=== PATIENT | male | born 1955 | race African-American/Black ===

== ENCOUNTER 2016-12-29 16:37 | Emergency (ER) | payer MEDICAID ==
[~2016-12-29] VITALS: Ht 177.8 cm; Wt 93.4 kg
[~2016-12-29 16:37] MED LIST: ASPIR-LOW81 MG ORAL; BENAZEPRIL HCL20 MG ORAL; CLOTRIMAZOLE AF30 GM TOPIC; CYCLOBENZAPRINE10 MG ORAL; DICLOFENAC SODI50 MG PO; GABAPENTIN300 MG ORAL; IBUPROFEN600 MG ORAL; IBUPROFEN600 MG PO; IBUPROFEN800 MG ORAL; LANTUS SOL100 UNIT/1 SUBQ; LANTUS5 UNITS SUBQ; LOVASTATIN20 MG ORAL; METFORMIN HCL1000 M1 ORAL; NEURONTIN100 MG ORAL; NORCO 5-325 TA1 EACH ORAL; NORCO 5-325 TA1 EACH PO; PREDNISONE10 MG ORAL; SOMA350 MG PO; TRAMADOL HCL50 MG ORAL; UNK BP MED; VICODIN 5-5001 EACH PO; [UNRECOGNIZED DRUG - REMARK]; [UNRECOGNIZED DRUG - SUPPLY] MC
[2016-12-29] MEDS ORDERED: ROBAXIN-750750 MG PO (17:04)
[2016-12-29 17:10] VITALS: BP 153/96
--- NOTE | 2016-12-29 17:11 | Emergency Room Report ---
History of Present Illness General Chief Complaint: Multiple Trauma/Fall Source: Medical Record Present Illness HPI [id number] [employer] patient c/o left knee strain when walking down stairs. No acute direct trauma to knee. Able to ambulate No previous injury to left knee Contrary to head esthetician note, denies pain to upper extremities Allergies: Coded Allergies: No Known Allergies (Unverified , 08/01/12) Patient History Past Medical History: none Past Surgical History: none Pertinent Family History: none Social History: Denies: alcohol use, drug use, smoking Immunizations: UTD Reviewed Nursing Documentation: PMH: Agreed, PSxH: Agreed Nursing Documentation-PMH Past Medical History: No History, Except For Hx Cardiac Problems: No Hx Hypertension: Yes Hx Pacemaker: No Hx Asthma: No Hx COPD: No Hx Diabetes: Yes Hx Cancer: No Hx Dialysis: No Hx Neurological Problems: No Hx Cerebrovascular Accident: No Hx Seizures: No Review of Systems All Other Systems: negative except mentioned in HPI Physical Exam Vital Signs Date Time Temp Pulse Resp B/P Pulse Ox O2 Delivery O2 Flow Rate FiO2 12/29/16 16:43 98.1 87 16 153/96 98 Room Air Sp02 EP Interpretation: reviewed, normal General Appearance: normal inspection, well appearing, no apparent distress, alert, GCS 15, non-toxic Head: normocephalic, atraumatic Eyes: bilateral eye EOMI, bilateral eye PERRL ENT: normal ENT inspection, hearing grossly normal, normal voice Neck: normal inspection, full range of motion, supple, no bony tend Respiratory: normal inspection, lungs clear, normal breath sounds, no respiratory distress, no retraction, no wheezing Cardiovascular #1: regular rate, rhythm, no edema Gastrointestinal: normal inspection, normal bowel sounds, non tender, soft, no guarding, no hernia Genitourinary: no CVA tenderness Musculoskeletal: normal inspection, back normal, normal range of motion, Juanita' s Sign negative, other - Left knee: No swelling or deformity. ROM intact. No signs of infection,. Neurologic: normal inspection, alert, oriented x3, responsive, irrigator head III-XII nml as tested, DTRs symmetric, speech normal Psychiatric: normal inspection, judgement/insight normal, mood/affect normal Skin: normal inspection, normal color, no rash Medical Decision Making Diagnostic Impression: Primary Impression: Contusion, knee Qualified Codes: S80.02XA - Contusion of left knee, initial encounter ER Course Advised SUSAN TURNER followup Low suspicion for fx, septic joint, gout at this time DC home Last Vital Signs Date Time Temp Pulse Resp B/P Pulse Ox O2 Delivery O2 Flow Rate FiO2 12/29/16 16:43 98.1 87 16 153/96 98 Room Air Status: improved Disposition: HOME, SELF-CARE Condition: Improved Scripts Methocarbamol* (ROBAXIN-750*) 750 Mg Tablet 750 MG PO TID for 7 Days, #30 TAB 0 Refills Prov: ALBERTO DAVIS M.D. 12/29/16 Patient Instructions: Musculoskeletal Pain Additional Instructions: - Apply ice to area of pain as often as possible - Stretch knee daily - Keep LUIS ANGEL bandage on for support - Take robaxin up to 3x a day for pain ALBERTO DAVIS M.D. Dec 29, 2016 17:11
== END 2016-12-29 17:10 | disposition home or self-care (01) ==
LOC: EMR 16:55
DX: S80.02XA Contusion of left knee, initial encounter (principal); W01.0XXA Fall on same level from slipping, tripping and stumbling without subsequent striking against object, initial encounter; Y92.89 Other specified places as the place of occurrence of the external cause; I10 Essential (primary) hypertension; E11.9 Type 2 diabetes mellitus without complications
CPT/HCPCS: 29530; 99283

== ENCOUNTER 2019-05-14 10:59 | Emergency (ER) | payer MEDICAID ==
[~2019-05-14] VITALS: Ht 177.8 cm; Wt 93.0 kg
[~2019-05-14 10:59] MED LIST changes: +ROBAXIN-750750 MG PO
[2019-05-14 11:18] VITALS: BP 187/99
[2019-05-14] MEDS ORDERED: MULTIVITAMINS1 EAC2 ORAL (11:37)
[2019-05-14] MEDS ORDERED: basaglar INJ (11:37)
[2019-05-14] MEDS ORDERED: DICLOFENAC SODI25 MG ORAL (11:37)
[2019-05-14] MEDS ORDERED: FISH OIL CAP1000 MG ORAL (11:37)
--- NOTE | 2019-05-14 12:53 | Emergency Room Report ---
History of Present Illness General Chief Complaint: Pain Source: Medical Record Present Illness HPI 64-year-old male presents to the emergency department complaining of 10 out of 10 severity right-sided low back/hip pain with radiation down the posterior thigh towards his calf. Patient reports history of sciatica he states that his symptoms are similar in presentation to episodes that he is experienced in the past. Patient denies changes in characteristics. Patient denies fevers, chills , recent spinal procedures or history of cancer. Patient denies saddle anesthesia, loss of gross motor movements or inability to ambulate. Patient denies urinary incontinence or retention. Patient denies trauma or fall. Patient reports his last episode was approximately 2 years ago. He denies notable strenuous activities. Patient reports bending forward or sitting in a certain position will aggravate his symptoms. Patient reports he has some relief at rest. Patient is also reporting 6 out of 10 severity bilateral wrist pain and states he has a history of carpal tunnel bilaterally and is requesting new wrist splints as he lost the ones that he was using regularly. Patient denies trauma or fall he denies paresthesias to the fingers he denies loss of gross motor movements of the hands he denies swelling, erythema, warmth or open wound/bleeding. No other aggravating or relieving factors at this time. Allergies: Coded Allergies: No Known Allergies (Unverified , 08/01/12) Patient History Past Medical History: see triage record Past Surgical History: other - hardware in the left leg. Pertinent Family History: none Immunizations: UTD Reviewed Nursing Documentation: PMH: Agreed; PSxH: Agreed Nursing Documentation-PM Past Medical History: No History, Except For Hx Cardiac Problems: No Hx Hypertension: Yes Hx Pacemaker: No Hx Asthma: No Hx COPD: No Hx Diabetes: Yes Hx Cancer: No Hx Dialysis: No Hx Neurological Problems: No Hx Cerebrovascular Accident: No Hx Seizures: No Review of Systems All Other Systems: negative except mentioned in HPI Physical Exam Vital Signs Date Time Temp Pulse Resp B/P (MAP) Pulse Ox O2 Delivery O2 Flow Rate FiO2 05/14/19 11:06 97.9 99 18 187/99 (128) 96 Room Air Sp02 EP Interpretation: reviewed, normal General Appearance: no apparent distress, alert, GCS 15, non-toxic Head: normocephalic, atraumatic Eyes: bilateral eye normal inspection, bilateral eye PERRL ENT: hearing grossly normal, normal voice Neck: full range of motion Respiratory: chest non-tender, lungs clear, normal breath sounds, no respiratory distress, no wheezing, speaking full sentences Cardiovascular #1: regular rate, rhythm, no edema, normal capillary refill Cardiovascular #2: 2+ dorsalis pedis (R) - posterior tibialis, 2+ dorsalis pedis (L) - posterior tibialis Gastrointestinal: non tender, soft Rectal: deferred Genitourinary: normal inspection, no CVA tenderness Musculoskeletal: normal range of motion, no calf tenderness, other - mild ttp with ROM of the bilateral wrists, no swelling, no obvious deformity. some slight thenar muscle atrophy bilaterally. , tender - Right Paraspinal and upper gluteal TTP, FROM with exacerbation of pain temporarily in certain flexed positions, no LE weakness, pt. is NVI, no erythema, midline bony ttp, step-offs or obvious deformity. Neurologic: alert, oriented x3, responsive, motor strength/tone normal, sensory intact, speech normal, distal neuro normal, grossly normal Psychiatric: judgement/insight normal Lymphatic: no adenopathy Medical Decision Making PA Attestation Dr. Alexandra is my supervising Physician whom patient management has been discussed with. Diagnostic Impression: Primary Impression: Sciatica of right side Additional Impression: Pain of both wrist joints ER Course 64-year-old male presents to the emergency department complaining of 10 out of 10 severity right-sided low back/hip pain with radiation down the posterior thigh towards his calf. Patient reports history of sciatica he states that his symptoms are similar in presentation to episodes that he is experienced in the past. Patient denies changes in characteristics. Patient denies fevers, chills , recent spinal procedures or history of cancer. Patient denies saddle anesthesia, loss of gross motor movements or inability to ambulate. Patient denies urinary incontinence or retention. Patient denies trauma or fall. Patient reports his last episode was approximately 2 years ago. He denies notable strenuous activities. Patient reports bending forward or sitting in a certain position will aggravate his symptoms. Patient reports he has some relief at rest. Patient is also reporting 6 out of 10 severity bilateral wrist pain and states he has a history of carpal tunnel bilaterally and is requesting new wrist splints as he lost the ones that he was using regularly. Patient denies trauma or fall he denies paresthesias to the fingers he denies loss of gross motor movements of the hands he denies swelling, erythema, warmth or open wound/bleeding. No other aggravating or relieving factors at this time. Ddx considered but are not limited to Fracture, dislocation, contusion, epidural abscess, Sprain/Strain/Spasm Vital signs: are WNL, pt. is afebrile H&PE are most consistent with sciatica--no evidence of cauda equina syndrome, patient ambulatory without assistance at rest he is in no acute distress and nontoxic in appearance low suspicion for infection. ORDERS: X-ray not required at this time, no spinous process tenderness ED INTERVENTIONS: IM Toradol 30mg. -Soma p.o. -Lidoderm patch Right wrist Splint applied by chemistry quality control technician. Pt. remains neurovascularly intact. Left wrist splint applied by chemistry quality control technician. Pt. remains neurovascularly intact. Re-Evaluation: pt. states his pain has subsided with ED interventions -I do not identify an emergent condition at this time. With current presentation , pt. is stable for close outpatient follow up and conservative treatment. D/ w pt. to return promptly to ED with worsening or new symptoms.- Pt. verbalizes' understanding and agreement with proposed treatment plan. DISCHARGE: At this time pt. is stable for d/c to home. Will provide printed patient care instructions, and any necessary prescriptions. Care plan and follow up instructions have been discussed with the patient prior to discharge. Last Vital Signs Date Time Temp Pulse Resp B/P (MAP) Pulse Ox O2 Delivery O2 Flow Rate FiO2 05/14/19 11:18 97.9 80 18 187/99 96 Room Air Status: improved Disposition: HOME, SELF-CARE Condition: Stable Scripts Acetaminophen (Acetaminophen) 500 Mg Tablet 500 MG ORAL Q6HR for PAIN, #30 TAB Prov: Naida Frausto 05/14/19 Methocarbamol* (METHOCARBAMOL*) 750 Mg Tablet 750 MG ORAL FOUR TIMES A DAY PRN for For Pain, #28 TAB 0 Refills Prov: Naida Frausto 05/14/19 Patient Instructions: Sciatica, [id number], Wrist Pain, [id number] Additional Instructions: Take medications as directed. Follow up with a Primary Care Provider in 3-5 days, even if your symptoms have resolved. --Please review list of primary care clinics, if you do not already have a primary care provider Return sooner to ED if new symptoms occur, or current symptoms become worse. Do not drink alcohol, drive, or operate heavy machinery while taking Robaxin ( Muscle Relaxers) as this may cause drowsiness. - Please note that this Emergency Department Report was dictated using [employer] mechanic apprentice technology software, occasionally this can lead to erroneous entry secondary to interpretation by the dictation equipment. Naida Frausto May 14, 2019 12:53
[2019-05-14] MEDS ORDERED: ACETAMINOPHEN500 M5 ORAL ×2 (12:55)
[2019-05-14] MEDS ORDERED: METHOCARBAMOL750 MG ORAL ×2 (12:55)
[2019-05-14] MEDS ORDERED: Ketorolac 30mg Inj IM ONE (13:00)
[2019-05-14 13:10] VITALS: BP 128/56
== END 2019-05-14 13:10 | disposition home or self-care (01) ==
LOC: EMR 12:51
DX: M54.31 Sciatica, right side (principal); M25.532 Pain in left wrist; M25.531 Pain in right wrist; M25.551 Pain in right hip; I10 Essential (primary) hypertension; E11.9 Type 2 diabetes mellitus without complications
CPT/HCPCS: 29125; 96372; J1885; Z7502; 99283

== ENCOUNTER 2019-05-20 11:35 | Emergency (ER) | payer MEDICAID ==
[~2019-05-20] VITALS: Ht 177.8 cm; Wt 93.0 kg
[~2019-05-20 11:35] MED LIST changes: +ACETAMINOPHEN500 M5 ORAL; +DICLOFENAC SODI25 MG ORAL; +FISH OIL CAP1000 MG ORAL; +METHOCARBAMOL750 MG ORAL; +MULTIVITAMINS1 EAC2 ORAL; +basaglar INJ
[2019-05-20 11:38] VITALS: BP 170/102
--- NOTE | 2019-05-20 11:45 | NUR ---
ED Nurse Note: PATIENT PRESENTS TO ER DUE TO PAINFUL RASH OVER THE LUE. REPORT NO FEVER OR CHILLS. REPORTS NO N/V. RASH WITH CLUSTERS OF BLISTERS WITH REDNESS NOTED. ERMD GIVEN INSTRUATION REGARDING ISOLATION PRECAUTION. PATIENT HAS HX OF HERPES ZOSTER.
[2019-05-20] MEDS ORDERED: ASPIRIN81 MG ORAL (11:49)
[2019-05-20] MEDS ORDERED: ACYCLOVIR800 MG ORAL (11:54)
--- NOTE | 2019-05-20 11:54 | Emergency Room Report ---
History of Present Illness General Chief Complaint: Animal Bite Source: Patient Present Illness HPI 64-year-old male presents with vesicles on his left arm, following a dermatomal pattern, patient had burning sensation since Monday, no aggravating relieving factors severity is severe, patient denies any fevers chills chest pain shortness of breath patient presents for evaluation Allergies: Coded Allergies: No Known Allergies (Unverified , 08/01/12) Patient History Past Medical History: see triage record Reviewed Nursing Documentation: PMH: Agreed; PSxH: Agreed Nursing Documentation-PMH Hx Cardiac Problems: No Hx Hypertension: Yes Hx Pacemaker: No Hx Asthma: No Hx COPD: No Hx Diabetes: Yes Hx Cancer: No Hx Dialysis: No Hx Neurological Problems: No Hx Cerebrovascular Accident: No Hx Seizures: No Review of Systems All Other Systems: negative except mentioned in HPI Physical Exam Vital Signs Date Time Temp Pulse Resp B/P (MAP) Pulse Ox O2 Delivery O2 Flow Rate FiO2 05/20/19 11:38 98.1 114 20 170/102 (124) 99 Room Air General Appearance: well appearing, no apparent distress Head: normocephalic, atraumatic ENT: hearing grossly normal, normal voice Neck: full range of motion, supple Respiratory: no respiratory distress, speaking full sentences Neurologic: alert, normal gait Psychiatric: mood/affect normal Skin: rash - Vesicular lesions on left arm following a dermatomal pattern Medical Decision Making Diagnostic Impression: Primary Impression: Shingles Qualified Codes: B02.9 - Zoster without complications ER Course 64-year-old male presents with shingles, will start acyclovir Disposition home with return precautions Last Vital Signs Date Time Temp Pulse Resp B/P (MAP) Pulse Ox O2 Delivery O2 Flow Rate FiO2 05/20/19 11:38 98.1 114 20 170/102 (124) 99 Room Air Disposition: HOME, SELF-CARE Condition: Stable Scripts Acyclovir* (ZOVIRAX*) 800 Mg Tablet 800 MG ORAL FIVE TIMES A DAY, #35 TAB Prov: Elroy Raymundo MD 05/20/19 Referrals: [facility] Patient Instructions: Shingles, [id number] Additional Instructions: The patient was provided with discharge instructions, notified to follow-up with a primary care doctor and or specialist in the next 24-48 hours, and to return to the ED if they have worsening of their symptoms. Please note that this report is being documented using DRAGON technology. This can lead to erroneous entry secondary to incorrect interpretation by the dictating instrument. Elroy Raymundo MD May 20, 2019 11:54
--- NOTE | 2019-05-20 12:00 | NUR ---
ED Nurse Note: PATIENT IS BEING DISCHARGED FROM MEDICAL CARE. D/C INSTRUCTION AND PRESCRIPTION GIVEN TO PATIENT. PATIENT VERBALIZED UNDERSTANDING OF IT. ID BAND REMOVED.PATIENT AMBULATED OUT WITH STEADY GAIT.
== END 2019-05-20 12:00 | disposition home or self-care (01) ==
LOC: EMR 12:00
DX: B02.9 Zoster without complications (principal); I10 Essential (primary) hypertension; E11.9 Type 2 diabetes mellitus without complications
CPT/HCPCS: 99282